=== PATIENT | male | born 1990 | race Caucasian/White ===

== ENCOUNTER 2019-03-14 17:49 | Emergency (ER) | payer OTHER ==
[~2019-03-14] VITALS: Ht 190.5 cm; Wt 68.0 kg
[2019-03-14 18:18] VITALS: BP 127/79
--- NOTE | 2019-03-14 19:20 | NUR ---
CALLED IN LOBBY-NO ANSWER
--- NOTE | 2019-03-14 19:42 | NUR ---
PT AMBULATED TO CHAIR C
--- NOTE | 2019-03-14 19:42 | NUR ---
PATIENT PRESENTS TO ED WITH C/O L FOOT CELLULITIS X 5 DAYS +ERYTHEMA, +SWELLING . PT DENIES N/V/D; SKIN IS PINK/WARM/DRY; AAOX4 WITH EVEN AND STEADY GAIT; LUNGS CLEAR BL; HR EVEN AND REGULAR; PT DENIES ANY FEVER, CP, SOB, OR COUGH AT THIS TIME; PATIENT STATES PAIN OF 6/10 AT THIS TIME; VSS; PATIENT POSITIONED FOR COMFORT; HOB ELEVATED; BEDRAILS UP X2; BED DOWN. ER MD MADE AWARE OF PT STATUS.
--- NOTE | 2019-03-14 19:42 | NUR ---
CLAU MAST EVALUATING PATIENT
[2019-03-14] MEDS ORDERED: CLINDAMYCIN 600 MG/4 ML VIAL IM ONE (20:10)
[2019-03-14 20:57] VITALS: BP 122/72
--- NOTE | 2019-03-14 20:57 | NUR ---
Patient discharged with v/s stable. Written and verbal after care instructions given and explained. Patient alert, oriented and verbalized understanding of instructions. Ambulatory with steady gait. All questions addressed prior to discharge. ID band removed. Patient advised to follow up with PMD. Rx of CLEOCIN AND TYLENOL given. Patient educated on indication of medication including possible reaction and side effects. Opportunity to ask questions provided and answered.
== END 2019-03-14 20:57 | disposition home or self-care (01) ==
LOC: MED 17:49
DX: L03.116 Cellulitis of left lower limb (principal); Z88.1 Allergy status to other antibiotic agents
CPT/HCPCS: 96372; 99283; J3490

== ENCOUNTER 2021-10-13 11:20 | Emergency (ER) | payer OTHER ==
[~2021-10-13] VITALS: Ht 177.8 cm; Wt 77.1 kg
[2021-10-13 11:31] VITALS: BP 145/80
[2021-10-13] MEDS ORDERED: SUCRALFATE 1 GM TAB PO SCH (14:20)
[2021-10-13] MEDS ORDERED: ONDANSETRON 4 MG ODT PO ONE (14:20)
[2021-10-13] MEDS ORDERED: PANTOPRAZOLE 40 MG TABEC PO ONE (14:20)
[2021-10-13] MEDS ORDERED: DICYCLOMINE HCL LIQUID 20 MG, ALUMINUM HYD/MAG/SIMETHICONE 30 ML, LIDOCAINE VISCOUS 2% ... PO ONE ×3 (14:20)
[2021-10-13] MEDS ORDERED: ALUMINUM HYD/MAG/SIMETHICONE 30 ML UDC ONE (14:55)
[2021-10-13] MEDS ORDERED: DICYCLOMINE HCL LIQUID 10 MG/5 ML UDC ONE (14:55)
[2021-10-13 15:09] LABS: BASOPHILS # (AUTO) 0.1 K/uL (0.00-0.22); BASOPHILS % (AUTO) 1.4 % (0.0-2.0); EOSINOPHILS % (AUTO) 0.3 % (0.0-4.0); HEMATOCRIT 39.6 % (36-52); HEMOGLOBIN 13.1 g/dL (12.0-18.0); LYMPHOCYTES # (AUTO) 1.4 K/uL (2.0-11.5); LYMPHOCYTES % (AUTO) 15.2 % (20.5-51.1); MEAN CORPUSCULAR HEMOGLOBIN 30 pg (27-31); MEAN CORPUSCULAR HGB CONC 33 g/dL (33-37); MEAN CORPUSCULAR VOLUME 89.6 fL (80-94); MONOCYTES # (AUTO) 0.4 K/uL (0.8-1.0); MONOCYTES % (AUTO) 4.7 % (1.7-9.3); NEUTROPHILS # (AUTO) 7.3 K/uL (1.8-7.7); NEUTROPHILS % (AUTO) 78.4 % (42.2-75.2); PLATELET COUNT (AUTO) 311 K/uL (140-450); RED BLOOD CELL COUNT(AUTO) 4.42 MIL/uL (4.20-6.10); RED CELL DISTRIBUTION WIDTH 13.8 % (11.6-13.7); WHITE BLOOD COUNT (AUTO) 9.3 K/uL (4.8-10.8)
[2021-10-13 15:17] LABS: ALBUMIN 3.8 g/dL (3.4-5.0); ANION GAP 12.5 (8-16); CARBON DIOXIDE 29.6 mmol/L (21-32); CREATININE 0.9 mg/dL (0.6-1.3); POTASSIUM 3.1 mmol/L (3.5-5.1); TOTAL BILIRUBIN 0.4 mg/dL (0.0-1.0)
[2021-10-13] MEDS ORDERED: POTASSIUM CHLORIDE 10 MEQ TABER PO ONE (16:20)
--- NOTE | 2021-10-13 16:21 | NUR ---
PERFORMED PO CHALLENGE ON PATIENT, PATIENT DRANK WATER AND DENIES NAUSEA NOR URGE TO VOMIT.
[2021-10-13] MEDS ORDERED: NALO4SPR NS (16:23)
[2021-10-13] MEDS ORDERED: FAMO-90 PO (16:23)
[2021-10-13] MEDS ORDERED: ONDA-188 PO (16:23)
[2021-10-13 18:04] VITALS: BP 138/84
--- NOTE | 2021-10-13 18:05 | NUR ---
Patient discharged with v/s stable. Written and verbal after care instructions given and explained. Patient alert, oriented and verbalized understanding of instructions. Ambulatory with steady gait. All questions addressed prior to discharge. ID band removed. Patient advised to follow up with PMD. Rx of ZOFRAN, NARCAN, PEPCID given. Patient educated on indication of medication including possible reaction and side effects. Opportunity to ask questions provided and answered.
== END 2021-10-13 18:05 | disposition home or self-care (01) ==
LOC: MED 11:20
DX: K29.70 Gastritis, unspecified, without bleeding (principal); F11.23 Opioid dependence with withdrawal; Z79.899 Other long term (current) drug therapy; Z88.1 Allergy status to other antibiotic agents
CPT/HCPCS: 36415; 80053; 83690; 85025; 99284; Q0162

== ENCOUNTER 2021-10-25 15:27 | Emergency (ER) | payer OTHER ==
[~2021-10-25] VITALS: Ht 182.9 cm; Wt 68.0 kg
[~2021-10-25 15:27] MED LIST: FAMO-90 PO; NALO4SPR NS; ONDA-188 PO
[2021-10-25 15:36] VITALS: BP 136/69
[2021-10-25] MEDS ORDERED: ONDANSETRON 4 MG TAB PO STA (15:42)
[2021-10-25] MEDS ORDERED: DICYCLOMINE HCL LIQUID 20 MG, ALUMINUM HYD/MAG/SIMETHICONE 30 ML, LIDOCAINE VISCOUS 2% ... PO ONE ×3 (15:45)
--- NOTE | 2021-10-25 15:55 | NUR ---
C/O ABD PAIN, N/A X 2 DAYS. SEEN HERE SAME S/S FOR GASTRITIS, OPIOID USE DISORDER.
[2021-10-25] MEDS ORDERED: DICYCLOMINE HCL LIQUID 10 MG/5 ML UDC ONE (16:12)
[2021-10-25] MEDS ORDERED: ALUMINUM HYD/MAG/SIMETHICONE 30 ML UDC ONE (16:12)
[2021-10-25 16:19] LABS: BASOPHILS # (AUTO) 0.1 K/uL (0.00-0.22); BASOPHILS % (AUTO) 1.1 % (0.0-2.0); EOSINOPHILS # (AUTO) 0.4 K/uL (0-0.4); EOSINOPHILS % (AUTO) 5.9 % (0.0-4.0); HEMATOCRIT 38.8 % (36-52); HEMOGLOBIN 12.9 g/dL (12.0-18.0); LYMPHOCYTES # (AUTO) 1.5 K/uL (2.0-11.5); LYMPHOCYTES % (AUTO) 21.7 % (20.5-51.1); MEAN CORPUSCULAR HEMOGLOBIN 30 pg (27-31); MEAN CORPUSCULAR HGB CONC 33 g/dL (33-37); MEAN CORPUSCULAR VOLUME 89.2 fL (80-94); MONOCYTES # (AUTO) 0.5 K/uL (0.8-1.0); MONOCYTES % (AUTO) 6.5 % (1.7-9.3); NEUTROPHILS # (AUTO) 4.6 K/uL (1.8-7.7); NEUTROPHILS % (AUTO) 64.8 % (42.2-75.2); PLATELET COUNT (AUTO) 247 K/uL (140-450); RED BLOOD CELL COUNT(AUTO) 4.34 MIL/uL (4.20-6.10); RED CELL DISTRIBUTION WIDTH 13.9 % (11.6-13.7); WHITE BLOOD COUNT (AUTO) 7.1 K/uL (4.8-10.8)
--- NOTE | 2021-10-25 16:20 | NUR ---
PO MEDS GIVEN-NADR AT THS TIME
[2021-10-25 16:42] LABS: ALBUMIN 3.8 g/dL (3.4-5.0); CARBON DIOXIDE 29.4 mmol/L (21-32); CREATININE 0.7 mg/dL (0.6-1.3); POTASSIUM 3.4 mmol/L (3.5-5.1); TOTAL BILIRUBIN 0.5 mg/dL (0.0-1.0)
[2021-10-25] MEDS ORDERED: ONDA-188 SL (16:51)
[2021-10-25 17:32] VITALS: BP 133/62
== END 2021-10-25 17:32 | disposition home or self-care (01) ==
LOC: MED 15:27
DX: R10.13 Epigastric pain (principal); F19.10 Other psychoactive substance abuse, uncomplicated; F12.90 Cannabis use, unspecified, uncomplicated; F15.90 Other stimulant use, unspecified, uncomplicated; Z88.1 Allergy status to other antibiotic agents; Z79.899 Other long term (current) drug therapy; Z59.00 Homelessness unspecified
CPT/HCPCS: 36415; 80053; 83690; 85025; 99283; Q0162

== ENCOUNTER 2022-09-04 20:43 | Emergency (ER) | payer OTHER ==
[~2022-09-04] VITALS: Ht 190.5 cm; Wt 72.6 kg
[~2022-09-04 20:43] MED LIST changes: +ONDA-188 SL
[2022-09-04 20:48] VITALS: BP 110/74
--- NOTE | 2022-09-04 20:51 | NUR ---
TO LOBBY A/W BED AMBULATORY
--- NOTE | 2022-09-04 23:48 | NUR ---
AMBULATORY TO BED 09.
[2022-09-05] MEDS ORDERED: CLINDAMYCIN 600 MG/4 ML VIAL IM ONE (00:10)
--- NOTE | 2022-09-05 00:21 | NUR ---
c/o swelling to right side of face per pt, 10 pain and it started yesterday. denies any pmhx, allergic to keflex
[2022-09-05] MEDS ORDERED: CLINDAMYCIN 150 MG CAP ONE (00:24)
[2022-09-05] MEDS ORDERED: ACET-8905 PO (00:25)
[2022-09-05] MEDS ORDERED: NAPR-54 PO (00:25)
[2022-09-05] MEDS ORDERED: NALO4SPR NS (00:25)
[2022-09-05] MEDS ORDERED: CLIN300C2 PO (00:25)
[2022-09-05] MEDS ORDERED: CLINDAMYCIN 150 MG CAP PO ONE (00:25)
[2022-09-05 00:36] VITALS: BP 110/74
--- NOTE | 2022-09-05 00:37 | NUR ---
Patient discharged with v/s stable. Written and verbal after care instructions given and explained. New rx norco, clindamyxin,, naloxone, naproxen. Patient verbalized understanding. Ambulatory with steady gait. All questions addressed prior to discharge. Advised to follow up with PMD.
== END 2022-09-05 00:37 | disposition home or self-care (01) ==
LOC: MED 20:43
DX: K04.7 Periapical abscess without sinus (principal); Z79.899 Other long term (current) drug therapy
CPT/HCPCS: 99283